=== PATIENT | male | born 1980 | race Caucasian/White ===

== ENCOUNTER 2019-09-16 17:51 | Outpatient (CLI) | payer OTHER, SELFPAY ==
--- NOTE | 2019-09-16 | XR_ITS ---
WS: [id number] CHEST 2 VIEWS HISTORY: WHEEZING COMPARISON: 03/24/2014 Lungs: Clear with no abnormality. No pleural effusion or pneumothorax. Cardiac size: Normal. Mediastinum/Aorta: Normal mediastinum. Bones: Normal. XR/XR chest 2V* [id number] IMPRESSION: Normal chest.
== END 2019-09-16 17:52 | disposition home or self-care (01) ==
LOC: RADOUTREAD 09-17 11:06
PROVIDERS: Family Provider Family Medicine; Visit Provider Nurse Practitioner Family
DX: Z76.89 Persons encountering health services in other specified circumstances (principal)

== ENCOUNTER 2020-09-23 09:45 | Outpatient (CLI) | payer OTHER, SELFPAY ==
--- NOTE | 2020-09-23 10:40 | MR_ITS ---
WS: [id number] MRI RIGHT SHOULDER NONCONTRAST TECHNIQUE: Sagittal T2, coronal T1, T2 and proton density imaging. Axial gradient PDE imaging. CLINICAL INFORMATION: RIGHT SHOULDER PAIN COMPARISON: None. FINDINGS: Mild degenerative arthritis AC joint. Mild downsloping of the acromion. Normal bone marrow signal in the humeral head and glenoid. Supraspinatus is normal. Normal infraspinatus. Normal teres minor and s ubscapularis. Normal intra-articular biceps tendon. No rotator cuff tear. Normal biceps labral anchor. Normal biceps tendon in the bicipital groove. Glenoid labrum appears jan ssly normal. Normal soft tissues. MR/MR shoulder RT wo con* [id number] IMPRESSION: 1. Mild degenerative narrowing AC joint with mild downsloping acromion. 2. Normal rotator cuff. No acute rotator cuff tears. 3. Normal biceps tendon in the bicipital groove. Normal biceps labral anchor. 4. Glenoid labrum appears grossly normal.
== END 2020-09-23 09:46 | disposition home or self-care (01) ==
PROVIDERS: PCP Family Medicine; Visit Provider Family Medicine
DX: M25.511 Pain in right shoulder (principal)
CPT/HCPCS: 73221